=== PATIENT | male | born 1940 | race African-American/Black ===

== ENCOUNTER 2016-11-21 20:52 | Inpatient (IN) | payer MEDICARE, MEDICAID ==
[2016-11-21 21:24] LABS: Oxyhemoglobin 96.7 % (94.0-97.0); Sodium 140 mmol/L (135-148)
[2016-11-21 21:25] LABS: Mode NRB
[2016-11-21 21:30] LABS: Mean Platelet Volume 8.8 fL (7.4-10.4); Red Blood Cell (RBC) Count 4.57 mill/uL (4.70-6.10); White Blood Cell (WBC) Count 15.1 thou/uL (4.8-10.8)
--- NOTE | 2016-11-21 21:34 | RAD ---
SINGLE VIEW OF THE CHEST: 11/21/16 COMPARISON: 07/26/16 HISTORY: Altered mental status for eight hours. FINDINGS: Single view of the chest shows a normal sized cardiomediastinal silhouette with atherosclerotic calc ifications in the aorta. There is near complete opacification of the right thorax. This appeared mas s-like on the prior chest x-ray and appears to have increased in size. No pleural effusion is apprec iated. IMPRESSION: Enlarging mass in the right chest. POS: [facility]
[2016-11-21 21:35] LABS: Prothrombin Time 15.4 SEC (12.0-14.7)
[2016-11-21 21:36] LABS: PTT 22.7 SEC (22.9-36.1)
[2016-11-21 21:44] LABS: Lactic Acid - Sepsis 3.2 mmol/L (0.5-2.2)
[2016-11-21 21:48] LABS: #Basophils 0.1 thou/uL (0.0-0.2); #Lymphocytes 2.6 thou/uL (1.20-3.40); #Monocytes 1.1 thou/uL (0.11-0.59); #Neutrophils 11.4 thou/uL (1.40-6.50); %Basophils 0.3 % (0.0-1.0); %Eosinophils 0.3 % (0.0-10.0); %Lymphocytes 17.1 % (21.0-51.0); %Monocytes 7.1 % (0.0-10.0); ALT (SGPT) 31 U/L (8-55); AST (SGOT) 103 U/L (5-34); Alkaline Phosphatase 97 U/L (40-150); Anion Gap 21 mmol/L (10-20); Anisocytosis SLIGHT = 6-15 cells (100X) (0-5/hpf); BUN (Urea Nitrogen) 27 mg/dL (8.4-25.7); Bilirubin, Total 0.7 mg/dL (0.2-1.2); CK (CPK) 700 U/L (30-200); Calc. Creatinine Clearance 0 mL/min (70-130); Calcium 7.3 mg/dL (7.8-10.44); Carbon Dioxide 31 mmol/L (23-31); Chloride 93 mmol/L (98-107); Estimated GFR-MDRD 29; Globulin 3.8 g/dL (2.4-3.5); Hypochromia SLIGHT = 6-15 cells (100X) (0-5/hpf); Lipase 25 U/L (8-78); Magnesium 1.4 mg/dL (1.6-2.6); Microcytosis SLIGHT = 6-15 cells (100X) (0-5/hpf); Protein, Total 6.9 g/dL (5.8-8.1)
[2016-11-21 22:12] LABS: Troponin I 16.102 ng/mL (< 0.028)
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
[2016-11-21] MEDS ORDERED: Enoxaparin Sodium 60 MG/0.6 ML SYRINGE ONE (22:36)
[2016-11-21] MEDS ORDERED: Piperacillin/Tazobactam 3.375 GM in Sodium Chloride 0.9% 100 ML IVPB SCH (22:45)
[2016-11-21] MEDS ORDERED: Magnesium Sulfate 2 GM/100 ML BAG ONE (22:54)
[2016-11-21] MEDS ORDERED: NS 0.9% w/ 40 MEQ KCL 1,000 ML IV SCH (23:00)
--- NOTE | 2016-11-21 23:38 | PDOC.EVN ---
Event Note - Event Note Event Note: [id number] h&p dictated 1. Lung ca 2. ACute respiratory failure 3. Pneumonia 4. Sepsis PLAN: SEE ORDERS
[2016-11-21] MEDS ORDERED: Ondansetron HCl/PF 4 MG/2 ML Vial IVP PRN (23:39)
[2016-11-21] MEDS ORDERED: Sodium Chloride 0.9% 1,000 ML IV SCH (23:45)
[2016-11-21] MEDS ORDERED: Aspirin 325 MG TAB ONE (23:59)
--- NOTE | 2016-11-21 23:59 | RAD ---
SINGLE VIEW CHEST: 11/21/16 COMPARISON: 11/21/16 HISTORY: Central line placement. FINDINGS: Single view of the chest shows a normal sized cardiomediastinal silhouette. There is near complete o pacification of the right thorax. No central venous catheter is seen. there appears to be a small pe ripheral IV overlying the lateral aspect of the right neck. This may be within the external jugular vein. IMPRESSION: 1. No central venous catheter identified. 2. Stable opacification of the right thorax. POS: [facility]
[2016-11-22 00:12] LABS: Bilirubin Small (Negative); Blood, Urine Large (Negative); Glucose, Urine (Dipstick) Negative (Negative); Ketone, Urine Trace mg/dL (Negative); Nitrite Negative (Negative); Protein, Urine (Dipstick) 30 mg/dL (Neg-Trace)
[2016-11-22] MEDS ORDERED: Dextrose 50% Abboject 50 ML SYRINGE SLOW IVP PRN (00:12)
[2016-11-22] MEDS ORDERED: Dextrose 5% in Water 1,000 ML IV PRN (00:12)
[2016-11-22] MEDS ORDERED: Norepinephrine 8 MG/0.9% NS 250 ML ONE (01:50)
[2016-11-22] MEDS: Sodium Chloride 0.9% 1,000 ML IV SCH ×2 (02:00→17:29)
[2016-11-22] MEDS ORDERED: Norepinephrine 8 MG/250 ML BAG IVPB PRN (02:22)
[2016-11-22 03:14] LABS: Bacteria/HPF Rare-Few HPF (None Seen); Hyaline Casts/LPF 7-10 HYALINE CAST LPF (0-3 Hyaline); RBC/HPF GREATER THAN 50-TNTC HPF (0-3); Renal Epithelial 0-3 HPF (0-3); Yeast-All Forms None Seen HPF (None Seen)
[2016-11-22 03:45] LABS: #Lymphocytes 1.2 thou/uL (1.20-3.40); #Monocytes 0.9 thou/uL (0.11-0.59); #Neutrophils 14.8 thou/uL (1.40-6.50); %Basophils 0.1 % (0.0-1.0); %Eosinophils 0.3 % (0.0-10.0); %Monocytes 5.2 % (0.0-10.0); Hematocrit 24.1 % (42.0-52.0); Mean Platelet Volume 8.2 fL (7.4-10.4); Red Blood Cell (RBC) Count 3.53 mill/uL (4.70-6.10); White Blood Cell (WBC) Count 16.9 thou/uL (4.8-10.8)
[2016-11-22 04:22] LABS: Critical Call Chem Troponin I RESULT DECREASING; Troponin I 12.909 ng/mL (< 0.028)
[2016-11-22 04:24] LABS: Anion Gap 18 mmol/L (10-20); BUN (Urea Nitrogen) 26 mg/dL (8.4-25.7); Calc. Creatinine Clearance 0 mL/min (70-130); Calcium 6.2 mg/dL (7.8-10.44); Carbon Dioxide 27 mmol/L (23-31); Chloride 101 mmol/L (98-107); Estimated GFR-MDRD 33
[2016-11-22] MEDS ORDERED: Potassium Chloride 40 MEQ in Premix Bag 1 BAG IVPB SCH (05:00)
[2016-11-22 05:13] VITALS: BMI 33.9
[2016-11-22] MEDS: methylPREDNISolone Sod Succ/PF 125 MG/2 ML VIAL IVP SCH ×3 (05:47→17:34)
[2016-11-22 06:48] LABS: Anion Gap 19 mmol/L (10-20); BUN (Urea Nitrogen) 28 mg/dL (8.4-25.7); Calc. Creatinine Clearance 23 mL/min (70-130); Calcium 6.3 mg/dL (7.8-10.44); Carbon Dioxide 26 mmol/L (23-31); Chloride 101 mmol/L (98-107); Estimated GFR-MDRD 36
[2016-11-22 06:59] LABS: Critical Call Chem Troponin I RESULT DECREASING; Troponin I 10.668 ng/mL (< 0.028)
--- NOTE | 2016-11-22 08:45 | HP ---
DATE OF ADMISSION: 11/21/2016 CHIEF COMPLAINT: Altered mental status. HISTORY OF PRESENT ILLNESS: The patient is a 76-year-old male with past medical history of peripheral vascular disease, lung CA, currently not on any treatment, seizures, rheumatoid arthritis and CVA, now came to the hospital due to altered mental status. History obtained from the patient's family as the patient is currently lethargic and on BiPAP. According to the family members, the patient was recently discharged from the hospital on 11/08/2016 with the diagnosis of chest pain and also the patient had left AKA due to left lower extremity pain and ulceration. During the hospital stay, the patient was taken home instead of the prison facility or rehab per family request. According to the family, the patient was awake and oriented until yesterday and today the patient started getting confused and lethargic. The patient slept whole day. The patient did not eat or drink the whole day today, so the patient was brought to the ER. Upon ER arrival, the patient was lethargic, so the patient was placed on the BiPAP. PAST MEDICAL HISTORY: As per HPI. PAST SURGICAL HISTORY: Bilateral BKA. SOCIAL HISTORY: Denies smoking, denies alcohol, denies any drugs. MEDICATIONS: Reviewed. ALLERGIES: LATEX and NATURAL RUBBER. REVIEW OF SYSTEMS: None available from the patient as the patient is currently lethargic. PHYSICAL EXAMINATION: VITAL SIGNS: At the time of H and P performed, blood pressure is 86/40, afebrile, respiratory rate 18, pulse ox 97% on BiPAP. GENERAL: This patient appears lethargic, but arousable. HEENT: Face: Positive for BiPAP. Anterior nares patent. NECK: Positive for EJ. No JVD. CARDIOVASCULAR: S1, S2 present. Regular rate and rhythm. No murmurs, no rubs , no gallops. RESPIRATORY SYSTEM: Right side, diminished breath sounds present. Positive for rhonchi. Positive for wheezing. GASTROINTESTINAL: Abdomen is soft, nontender, no guarding, no organomegaly, no masses felt. GENITOURINARY: Positive for Garcia. MUSCULOSKELETAL: Bilateral AKA present. CRANIAL NERVE SYSTEM: Lethargic, not following much commands. PSYCHIATRIC: Mood is lethargic at this time. LABORATORY DATA: At the time of H\T\P performed, white count 15.1, hemoglobin 9.2, platelet count 783. PT 15.4, INR 1.2. ABG showed pH of 7.49, pCO2 of 42.7 , bicarbonate is 31.6. BMP showed sodium 142, potassium 2.9, chloride 93, CO2 of 31, BUN 27, creatinine 2.62. Troponin 16.102, CK-MB 41.2. BNP 193, lipase 25. ASSESSMENT AND PLAN: The patient is a 76-year-old male. 1. [id number] elevation myocardial infarction. ED physician did speak to the practice specialist already, practice specialist recommended medical management only due to patient prognosis. The patient was received Lovenox. We will consult Cardiology to evaluate the patient. 2. Acute respiratory failure plus history of lung CA, plus possible pneumonia. Plan to start the patient on breathing treatments and IV steroids. Continue BiPAP. We will monitor respiratory status closely. Plan to consult Pulmonary to evaluate the patient. 3. Altered mental status. Plan to do CT head. CT head, no acute disease seen , we will monitor the patient closely. 4. History of seizures. Continue home medications. 5. Sepsis secondary to possible pneumonia. Plan to send urine for culture and sensitivity. Plan to do blood cultures. Plan to start empiric antibiotics. 6. Hypotension. Monitor blood pressures. Continue IV fluids. Might need pressors. We will try to keep map greater than 60. 7. Acute kidney injury, baseline creatinine around 0.8. Acute kidney injury might be secondary to hypotension, will start IV fluids, repeat BMP in a.m. Avoid NSAID and nephrotoxic agent. The case was discussed in detail with the patient. The patient is a FULL CODE according to the family members. The family understood the patient's poor prognosis. SOFÍA
[2016-11-22] MEDS ORDERED: Gabapentin 300 MG CAP PO SCH (09:00)
[2016-11-22] MEDS ORDERED: levETIRAcetam 500 MG TAB PO SCH (09:00)
[2016-11-22] MEDS ORDERED: azaTHIOprine 50 MG TAB PO SCH (09:00)
[2016-11-22] MEDS ORDERED: Cefepime 2 GM in Sodium Chloride 0.9% 100 ML IVPB SCH (09:00)
[2016-11-22] MEDS ORDERED: Heparin 5,000 UNITS/ML VIAL SC SCH (09:00)
--- NOTE | 2016-11-22 09:01 | PDOC.PN ---
- Subjective Encounter Start Date: 11/22/16 Encounter Start Time: 08:59 Subjective: No overnight issues -: No agitation -: No n/v - Objective MAR Reviewed: Yes Vital Signs & Weight: Vital Signs (12 hours) Temp Pulse Resp BP Pulse Ox 11/22/16 07:11 61 14 100 11/22/16 07:09 55 L 13 100 11/22/16 04:00 98.3 F 11/22/16 03:21 62 12 11/22/16 03:20 62 12 100 11/22/16 01:00 99.5 F 62 12 84/54 L 100 Weight Weight 120 lb 9.486 oz Most Recent Monitor Data Heart Rate from ECG 60 NIBP 88/49 Respiration from ECG 20 SpO2 97 I&O: 11/21/16 11/22/16 11/23/16 06:59 06:59 06:59 Intake Total 770 0 Output Total 53 50 Balance 717 -50 Result Diagrams: 11/22/16 02:15 11/22/16 05:30 Phys Exam - Physical Examination Constitutional: NAD HEENT: moist MMs, sclera anicteric Neck: no nodes, no JVD Respiratory: no wheezing, no rales Cardiovascular: no significant murmur, no rub Gastrointestinal: soft, non-tender, positive bowel sounds Lymphatic: no nodes Psychiatric: normal affect Skin: no rash, normal turgor, cap refill <2 seconds Dx/Plan (1) Lung cancer Code(s): C34.90 - MALIGNANT NEOPLASM OF UNSP PART OF UNSP BRONCHUS OR LUNG Status: Acute (2) Acute respiratory failure Code(s): J96.00 - ACUTE RESPIRATORY FAILURE, UNSP W HYPOXIA OR HYPERCAPNIA Status: Acute (3) Pneumonia Code(s): J18.9 - PNEUMONIA, UNSPECIFIED ORGANISM Status: Acute (4) Sepsis Code(s): A41.9 - SEPSIS, UNSPECIFIED ORGANISM Status: Acute Qualifiers: (5) NSTEMI (non-ST elevated myocardial infarction) Code(s): I21.4 - NON-ST ELEVATION (NSTEMI) MYOCARDIAL INFARCTION Status: Acute (6) AD (acute kidney injury) Code(s): N17.9 - ACUTE KIDNEY FAILURE, UNSPECIFIED Status: Acute - Plan * Acute Respiratory Failure with PNA (also with h/o lung cancer): appreciate pulm input * NSTEMI: appreciate cardiology input * AD: will consult nephrology, avoid nephrotoxic agents, check renal labs in AM * AMS likely 2/2 above issues: CT brain: no acute issues
[2016-11-22] MEDS: Famotidine/PF 20 mg/2ml Vial SLOW IVP SCH (09:10)
[2016-11-22] MEDS: Vancomycin HCl 1.5 GM in Sodium Chloride 0.9% 250 ML 300 ML IVPB SCH (10:22)
--- NOTE | 2016-11-22 11:47 | CON ---
DATE OF CONSULTATION: 11/22/2016 HISTORY: Mr. Robe Green is 76-year-old black male, who was admitted with altered mental status. He has presumed right lung cancer, although he has never had a biopsy. He also has significant peripheral vascular disease with bilateral [id number] amputations and a right hemispheric stroke with left hemiparesis. His O2 saturation upon arrival was in the 50s. He has been found to have positive cardiac enzymes and EKG changes, and last night, I was called regarding taking him to the industrial laborer; however, with his multiple medical problems, I do not feel that is appropriate. PAST MEDICAL HISTORY: Probable lung cancer, peripheral vascular disease, rheumatoid arthritis, history of cerebrovascular accident, and seizure disorder. OPERATIONS: Include bilateral AKA, left hip surgery. MEDICATIONS: Trazodone 50 at bedtime, prednisone 10 mg q.a.m., Keppra 500 mg b.i.d., azathioprine 50 daily, Bactrim 1 daily, omeprazole 20 daily, [place], Neurontin 300 mg b.i.d., Lasix 40 daily, Folvite 40 daily, iron sulfate 325 b.i.d., baclofen 10 mg daily, albuterol nebs q.6 hours p.r.n., and vitamin B12. ALLERGIES: LATEX and NATURAL RUBBER. SOCIAL HISTORY: Unavailable. FAMILY HISTORY: Unavailable. REVIEW OF SYSTEMS: Cannot be obtained from the patient. PHYSICAL EXAMINATION: VITAL SIGNS: Blood pressure 80/49, pulse of 61, sinus rhythm on the monitor. HEENT: PERRL. NECK: Supple. CHEST: Reveals bilateral rhonchi, greater on the right. CARDIOVASCULAR: S1 and S2 are normal, without any S3, S4, or murmurs. ABDOMEN: Normal bowel sounds, without tenderness. EXTREMITIES: Reveal bilateral AKA without edema. NEUROLOGIC: The patient has left hemiparesis with contractures. He will open his eyes to name. IMAGING AND LABORATORY DATA: EKG reveals junctional rhythm at 75 per minute with anterolateral ST segment depression. Hemoglobin is down to 6.8, hematocrit 24.1, white count 16,900. INR 1.2. PH 7.49, pCO2 of 42.7, pO2 of 194.7. Sodium 143, potassium 2.6, chloride 101, carbon dioxide 26, BUN 28, creatinine 2.17. Troponin I 16.102, CK-MB 41.2. Urine, too numerous to count RBCs, 11-20 WBCs, rare bacteria. IMPRESSION: 1. Mental status changes. 2. Non-ST segment elevation myocardial infarction. His peak troponin is at admission and so this probably occurred several days ago. 3. Respiratory failure with hypoxemia. 4. Probable lung cancer, although this has never been biopsied. It was felt that he would not be a candidate for surgery or chemotherapy. 5. Peripheral vascular disease, status post bilateral above-knee amputations. 6. History of right hemispheric cerebrovascular accident. 7. Chronic kidney disease. 8. Seizure disorder. 9. Drop in hemoglobin from 9.2 on admission to 6.8 this morning. PLAN: With drop in hemoglobin, I would discontinue the heparin. Mr. Green's prognosis is extremely poor given his multiple medical problems. With lung cancer and renal insufficiency, he would be a very poor candidate for any type of cardiac intervention, and I feel that he should just be treated medically. He will be followed by his usual online program coordinator, Dr. Haresh Ware. [facility]ITAL[facility]ariam
--- NOTE | 2016-11-22 12:29 | CON ---
DATE OF CONSULTATION: 11/22/2016 Thirty five minutes of critical care time. CONSULTING PHYSICIAN: Dr. Villalobos from the [facility]. REASON FOR CONSULTATION: Acute respiratory failure. HISTORY OF THE PRESENT ILLNESS: The patient is a 76-year-old male who I have seen in recent hospita lizations and in the office on a couple of occasions. He has a profound right-sided lung mass, whic h I believe is probably cancer. I have told him that there is not much that can be done for that an d he and his family have been agreeable not to treat it. He came in yesterday with increasing hoang rgy and weakness. He was found to be hypoxic, off O2. He was placed on BiPAP. A central line was placed for hypotension and he has been placed in the CCU. PAST MEDICAL HISTORY: 1. Large lung mass 2. Peripheral vascular disease, requiring bilateral AKAs. 3. Rheumatoid arthritis. 4. Cerebrovascular accident. 5. Seizures. 6. Congestive heart failure. 7. Left hip fracture. PAST SURGICAL HISTORY: Bilateral AKAs. FAMILY MEDICAL HISTORY: Remarkable for coronary artery disease. SOCIAL HISTORY: Patient smoked 1 pack per day between ages 18 and 62, does not consume alcohol, saldivar s not use recreational drugs. MEDICATIONS PRIOR TO ADMISSION: Trazodone, prednisone, Keppra, azathioprine, Bactrim, omeprazole, N orco, Neurontin, Lasix, folate, iron sulfate, vitamin B12, baclofen, and albuterol. REVIEW OF SYSTEMS: Not obtainable due to patient's altered mental status. PHYSICAL EXAMINATION: VITAL SIGNS: Pulse 64, blood pressure 118/50, O2 sat 100%, respiratory rate 18, temperature 98.3. GENERAL: He is a chronically ill appearing male who is on BiPAP. He has contracted left arm. HEENT: Pupils react. Sclerae are anicteric. Oropharynx dry. NECK: No JVD. LUNGS: Almost absent breath sounds on the right, fairly clear on the left. CARDIOVASCULAR: S1 and S2 regular, without murmur. ABDOMEN: Soft, nontender. EXTREMITIES: Bilateral above the knee amputations with continued fresh stephanie on the left stump. LABORATORY DATA: White blood cell count 16.9, hemoglobin 6.8, hematocrit 24.1, platelet count 702. Sodium 143, potassium 2.6, chloride 101, CO2 26, BUN 28, creatinine 2.1, glucose 150. Troponin 10. 6. Urinalysis showed white blood cells and red blood cells. ASSESSMENT: 1. Non-Q-wave myocardial infarction. 2. Lung cancer with almost entire opacification of the right hemothorax by the tumor mass. 3. Urinary tract infection. PLAN: 1. I will consult Palliative Care as I think this is a hopeless situation. 2. We will speak with the family when they become available.
[2016-11-22] MEDS: HumaLOG 300 UNITS/3 ML VIAL SC PRN ×4 (12:54→22:12)
[2016-11-22] MEDS: Acetaminophen 325 MG TAB PO PRN (17:24)
[2016-11-23] MEDS: methylPREDNISolone Sod Succ/PF 125 MG/2 ML VIAL IVP SCH ×4 (00:54→18:26)
[2016-11-23 05:04] LABS: #Lymphocytes 0.4 thou/uL (1.20-3.40); #Monocytes 0.2 thou/uL (0.11-0.59); #Neutrophils 13.2 thou/uL (1.40-6.50); %Eosinophils 0.1 % (0.0-10.0); %Lymphocytes 3.1 % (21.0-51.0); %Monocytes 1.4 % (0.0-10.0); Hematocrit 22.6 % (42.0-52.0); Mean Platelet Volume 8.4 fL (7.4-10.4); Red Blood Cell (RBC) Count 3.31 mill/uL (4.70-6.10); White Blood Cell (WBC) Count 13.9 thou/uL (4.8-10.8)
[2016-11-23] MEDS: Acetaminophen 325 MG TAB PO PRN (05:04)
[2016-11-23] MEDS: Sodium Chloride 0.9% 1,000 ML IV SCH ×2 (05:05→21:25)
--- NOTE | 2016-11-23 06:36 | CON ---
DATE OF CONSULTATION: 11/22/2016 CONSULTING PHYSICIAN: Dr. Villalobos. REASON FOR CONSULTATION: Acute kidney injury. REASON FOR ADMISSION: Altered mentation. HISTORY OF PRESENT ILLNESS: This is a 76-year-old white male with a history of peripheral vascular disease, lung CA, rheumatoid arthritis, and CVA, came to the hospital with altered mentation, was found to have acute kidney injury. Creatinine was found to be 2.6 and it is better to 2.1. Her baseline is 0.8 from 11/08/2016. The patient is not able to give a good history and most of the history was reviewed from the records, and the patient was awake and oriented until yesterday and started getting confused, lethargic, and sleepy. PAST MEDICAL HISTORY: Positive for lung CA, peripheral vascular disease, seizure, rheumatoid arthritis, CVA. PAST SURGICAL HISTORY: Bilateral BKA. HOME MEDICATIONS: Include Folvite, baclofen, prednisone, Keppra, cefepime, Bactrim, Neurontin, Lasix, trazodone. ALLERGIES: LATEX and NATURAL RUBBER. SOCIAL HISTORY: No smoking, alcohol, or illicit drug abuse. FAMILY HISTORY: No history of any kidney disease. REVIEW OF SYSTEMS: Could not be obtained due to lethargy and not able to participate. PHYSICAL EXAMINATION: GENERAL: Elderly male, slightly confused. VITAL SIGNS: Temperature 98.2, pulse 68, respiratory rate 18, blood pressure 100/63. HEENT: Atraumatic, normocephalic. Oral mucosa is moist. NECK: Supple. CARDIOVASCULAR: S1, S2 heard. Rate and rhythm regular. RESPIRATORY: Clear. GASTROINTESTINAL: Abdomen is soft. MUSCULOSKELETAL: 1+ edema. DERMATOLOGIC: No skin rash. NEUROLOGICAL: Not cooperating and not waking up. LABORATORY DATA: WBC 16.9, hemoglobin is 6.8. Potassium is 2.6, BUN is 28, creatinine is 2.1. ASSESSMENT AND PLAN: 1. Acute kidney injury. Continue supportive care. Continue hydration. Creatinine is getting better. Creatinine on admission was 2.6, now is 2.1. 2. Hypokalemia. Replace and monitor. Monitor magnesium level too. Magnesium level was low. Replace magnesium and potassium. 3. Hypocalcemia, replace and monitor. Check vitamin D level. 4. Anemia, rule out any bleed. 5. Leukocytosis. 6. Altered mentation. 7. Elevated troponin. Overall, long-term prognosis is poor. Avoid nephrotoxins. We will continue to follow. [facility]
[2016-11-23] MEDS: HumaLOG 300 UNITS/3 ML VIAL SC PRN ×2 (06:47→12:35)
--- NOTE | 2016-11-23 08:24 | PRG ---
DATE OF SERVICE: 11/23/2016 Mr. Green and his family met with the Palliative Care team yesterday. He decided to go forward wi th a DNR status and pursue hospice type care. We are awaiting that to be arranged. PHYSICAL EXAMINATION: VITAL SIGNS: Temperature is 97.5, pulse 66, blood pressure 93/55. 24 hour intake 3282, output 320. HEENT: Bitemporal wasting is present. NECK: No JVD. LUNGS: Coarse breath sounds. CARDIOVASCULAR: S1, S2 regular. ABDOMEN: Soft. EXTREMITIES: Bilateral lower extremity above the knee amputations. LABORATORY DATA: White blood cell count 13.9, hematocrit 22.6, platelet count 655. No chemistry wa s done today. ASSESSMENT: 1. The patient has advanced lung cancer and is not a candidate for therapy 2. Myocardial infarction. 3. Acute respiratory failure. 4. Urinary tract infection. PLAN: He will be transferred to the Oncology unit while hospice arrangements are being made. My as sumption is that his antibiotics can probably be converted to oral before he goes home. I met with the family yesterday. All questions were answered.
--- NOTE | 2016-11-23 09:03 | PDOC.PN ---
- Subjective Encounter Start Date: 11/23/16 Encounter Start Time: 09:01 Subjective: No overnight issues -: No agitation -: Daughter at bedside - Objective Resuscitation Status: Resuscitation Status DNR:Do Not Resuscitate MAR Reviewed: Yes Vital Signs & Weight: Vital Signs (12 hours) Temp Pulse Resp BP Pulse Ox 11/23/16 07:53 65 23 H 100 11/23/16 07:48 97.5 F L 66 21 H 100 11/23/16 07:45 97.5 F L 11/23/16 06:00 70 20 108/52 L 99 11/23/16 05:00 98.6 F 71 21 H 99/50 L 98 11/23/16 04:00 66 18 89/49 L 100 11/23/16 03:26 20 99 11/23/16 03:00 63 17 116/59 L 99 11/23/16 02:00 64 21 H 106/52 L 100 11/23/16 01:00 66 18 101/54 L 99 11/23/16 00:00 98.9 F 64 17 85/43 L 100 11/22/16 23:17 22 H 98 11/22/16 23:00 69 21 H 105/65 99 11/22/16 22:00 70 24 H 121/64 100 Weight Weight 120 lb 9.486 oz Most Recent Monitor Data Heart Rate from ECG 68 NIBP 116/65 Respiration from ECG 17 SpO2 99 I&O: 11/22/16 11/23/16 11/24/16 06:59 06:59 06:59 Intake Total 770 3282.7 200 Output Total 53 320 30 Balance 717 2962.7 170 Result Diagrams: 11/23/16 04:30 11/22/16 05:30 Additional Labs: Accuchecks 11/23/16 11/22/16 11/22/16 06:43 22:04 17:44 POC Glucose 186 H 226 H 243 H 11/22/16 11/22/16 12:41 06:20 POC Glucose 235 H 159 H Phys Exam - Physical Examination Constitutional: NAD HEENT: moist MMs, sclera anicteric Neck: no nodes, no JVD Respiratory: no wheezing, no rales, no rhonchi Cardiovascular: no significant murmur, no rub Gastrointestinal: soft, non-tender, positive bowel sounds Psychiatric: normal affect Skin: no rash, normal turgor Dx/Plan (1) Lung cancer Code(s): C34.90 - MALIGNANT NEOPLASM OF UNSP PART OF UNSP BRONCHUS OR LUNG Status: Acute (2) Acute respiratory failure Code(s): J96.00 - ACUTE RESPIRATORY FAILURE, UNSP W HYPOXIA OR HYPERCAPNIA Status: Acute (3) Pneumonia Code(s): J18.9 - PNEUMONIA, UNSPECIFIED ORGANISM Status: Acute (4) Sepsis Code(s): A41.9 - SEPSIS, UNSPECIFIED ORGANISM Status: Acute Qualifiers: (5) NSTEMI (non-ST elevated myocardial infarction) Code(s): I21.4 - NON-ST ELEVATION (NSTEMI) MYOCARDIAL INFARCTION Status: Acute (6) AD (acute kidney injury) Code(s): N17.9 - ACUTE KIDNEY FAILURE, UNSPECIFIED Status: Acute - Plan * Acute Respiratory Failure with PNA (also with h/o lung cancer): appreciate pulm input * NSTEMI: appreciate cardiology input * AD: will consult nephrology, avoid nephrotoxic agents, check renal labs in AM * AMS likely 2/2 above issues: CT brain: no acute issues * Anemia: no transfusion - family prefers hospice care route * Goals of care: appreciate palliative care, pt now DNR - arrangments being made for hospice care
[2016-11-23] MEDS: Cefepime 2 GM in Sodium Chloride 0.9% 100 ML IVPB SCH (09:09)
[2016-11-23] MEDS: Famotidine/PF 20 mg/2ml Vial SLOW IVP SCH (09:09)
--- NOTE | 2016-11-23 09:13 | PDOC.CTH ---
Cardiology Progress Note - Subjective Patient and family have decided on hospice care going forward. In light of his multiple medical comorbidities and advanced stage lung cancer, I agree with this decision. He does not complain of CP. Appears comfortable at this time. - Objective Vital Signs Temp Pulse Resp BP Pulse Ox 11/23/16 07:53 65 23 H 100 11/23/16 07:48 97.5 F L 66 21 H 100 11/23/16 07:45 97.5 F L 11/23/16 06:00 70 20 108/52 L 99 11/23/16 05:00 98.6 F 71 21 H 99/50 L 98 11/23/16 04:00 66 18 89/49 L 100 11/23/16 03:26 20 99 11/23/16 03:00 63 17 116/59 L 99 11/23/16 02:00 64 21 H 106/52 L 100 11/23/16 01:00 66 18 101/54 L 99 11/23/16 00:00 98.9 F 64 17 85/43 L 100 11/22/16 23:17 22 H 98 11/22/16 23:00 69 21 H 105/65 99 11/22/16 22:00 70 24 H 121/64 100 Weight 120 lb 9.486 oz 11/22/16 11/23/16 11/24/16 06:59 06:59 06:59 Intake Total 770 3282.7 200 Output Total 53 320 30 Balance 717 2962.7 170 - Physical Examination General/Neuro: NAD Neck: carotid US brisk, no JVD present Lungs: unlabored respirations Heart: PMI normal, RRR Abdomen: no HSM, NT/ND, soft Extremities: other: (2+ fem pulses, bilat amputations) Other PE findings: Neuro: upper extremity contractures unchanged - Telemetry Telemetry Rhythm: sinus rhythm - Labs Result Diagrams: 11/23/16 04:30 11/22/16 05:30 Troponin/CKMB CK-MB (CK-2) 41.2 ng/mL (0-6.6) H* 11/21/16 21:13 Troponin I 10.668 ng/mL (< 0.028) H* 11/22/16 05:30 - Assessment/Plan 1. NSTEMI: not interventional candidate. Medical management recommended. Continue to hold BB, ACEI, nitrates due to need for pressors and renal failure. Statin therapy will not be pursued due to desire for hospice therapy. Will sign off case for now. Please call with CV questions going forward. 2. advanced stage lung cancer: agree with hospice care decision. 3. CVA with diffuse neuro deficits: chronic 4. acute/chronic renal failure: nephrology following. Not dialysis candidate
[2016-11-23] MEDS: Vancomycin HCl 1.5 GM in Sodium Chloride 0.9% 250 ML 300 ML IVPB SCH (10:32)
[2016-11-23 16:39] LABS: Anion Gap 20 mmol/L (10-20); BUN (Urea Nitrogen) 37 mg/dL (8.4-25.7); Calc. Creatinine Clearance 28 mL/min (70-130); Calcium 6.7 mg/dL (7.8-10.44); Carbon Dioxide 17 mmol/L (23-31); Chloride 105 mmol/L (98-107); Estimated GFR-MDRD 46
--- NOTE | 2016-11-23 17:52 | PRG ---
DATE OF SERVICE: 11/23/2016 SUBJECTIVE: Patient was seen and examined at bedside and overnight events noted. Patient denies any shortness of breath or chest pain or palpitation. No history of nausea or vomiting or diarrhea or fever or chills or cramps. OBJECTIVE: GENERAL: This is a thin-built male in no apparent distress. VITAL SIGNS: Temperature 98.5, pulse 75, respiratory rate 18, blood pressure 113/65. HEENT: Atraumatic, normocephalic. Oral mucosa is moist. NECK: Supple. CARDIOVASCULAR: S1 and S2 heard, rate and rhythm regular. RESPIRATORY: Clear to auscultation. GASTROINTESTINAL: Abdomen is soft. MUSCULOSKELETAL: No tenderness, no edema. DERMATOLOGIC: No skin rash. NEUROLOGIC: Alert and awake and oriented X3. No focal neurologic deficits. Moving all the extremities. PSYCHIATRIC: Mood and affect normal. LABORATORY DATA: Potassium is 3.4, BUN is 20, creatinine 1.7 from 2.7. ASSESSMENT AND PLAN: 1. Acute kidney injury. Renal function is getting better with improvement in the urine output, but his overall prognosis is poor. I had discussion with the family. Plan is to move him for comfort measures. 2. Hypokalemia. 3. Hypocalcemia. 4. Anemia. 5. Leukocytosis. 6. Altered mentation. 7. Overall, long-term prognosis is poor. The family understands the prognosis and the plan is to move him to hospice. SOFÍA
[2016-11-24] MEDS ORDERED: Sterile Water 10 ML ONE (00:04)
[2016-11-24] MEDS: methylPREDNISolone Sod Succ/PF 125 MG/2 ML VIAL IVP SCH ×5 (00:09→23:53)
[2016-11-24] MEDS: HumaLOG 300 UNITS/3 ML VIAL SC PRN ×3 (05:25→17:37)
--- NOTE | 2016-11-24 07:27 | PDOC.PN ---
- Subjective Encounter Start Date: 11/24/16 Encounter Start Time: 07:26 Subjective: SOB -: No overnight issues - Objective Resuscitation Status: Resuscitation Status DNR:Do Not Resuscitate MAR Reviewed: Yes Vital Signs & Weight: Vital Signs (12 hours) Temp Pulse Resp BP Pulse Ox 11/24/16 06:25 86 22 H 99 11/24/16 03:54 98.5 F 73 20 135/72 98 11/24/16 02:30 76 16 99 11/23/16 23:56 97.9 F 72 16 129/71 98 11/23/16 22:22 75 16 100 11/23/16 21:10 97.9 F 72 16 100 11/23/16 20:00 98.4 F 76 20 133/67 100 Weight Weight 120 lb 9.486 oz Most Recent Monitor Data Heart Rate from ECG 82 NIBP 134/56 NIBP BP-Mean 106 Respiration from ECG 37 SpO2 92 I&O: 11/23/16 11/24/16 11/25/16 06:59 06:59 06:59 Intake Total 3282.7 700 Output Total 320 223 Balance 2962.7 477 Result Diagrams: 11/23/16 04:30 11/23/16 15:59 Additional Labs: Accuchecks 11/24/16 11/23/16 11/23/16 05:25 20:19 12:06 POC Glucose 193 H 179 H 211 H 11/23/16 06:43 POC Glucose 186 H Phys Exam - Physical Examination Constitutional: NAD HEENT: moist MMs, sclera anicteric Neck: no nodes, no JVD b/l coarse Cardiovascular: no significant murmur, no rub Gastrointestinal: soft, non-tender, positive bowel sounds Skin: no rash, cap refill <2 seconds Dx/Plan (1) Lung cancer Code(s): C34.90 - MALIGNANT NEOPLASM OF UNSP PART OF UNSP BRONCHUS OR LUNG Status: Acute (2) Acute respiratory failure Code(s): J96.00 - ACUTE RESPIRATORY FAILURE, UNSP W HYPOXIA OR HYPERCAPNIA Status: Acute (3) Pneumonia Code(s): J18.9 - PNEUMONIA, UNSPECIFIED ORGANISM Status: Acute (4) Sepsis Code(s): A41.9 - SEPSIS, UNSPECIFIED ORGANISM Status: Acute Qualifiers: (5) NSTEMI (non-ST elevated myocardial infarction) Code(s): I21.4 - NON-ST ELEVATION (NSTEMI) MYOCARDIAL INFARCTION Status: Acute (6) AD (acute kidney injury) Code(s): N17.9 - ACUTE KIDNEY FAILURE, UNSPECIFIED Status: Acute - Plan * Acute Respiratory Failure with PNA (also with h/o lung cancer): appreciate pulm input * NSTEMI: appreciate cardiology input * AD: will consult nephrology, avoid nephrotoxic agents * AMS likely 2/2 above issues: CT brain: no acute issues * Anemia: no transfusion - family prefers hospice care route * Goals of care: appreciate palliative care, pt now DNR - arrangements being made for hospice care with discharge planned for lupe
[2016-11-24] MEDS: Famotidine/PF 20 mg/2ml Vial SLOW IVP SCH (08:49)
[2016-11-24] MEDS: Cefepime 2 GM in Sodium Chloride 0.9% 100 ML IVPB SCH (10:00)
[2016-11-24] MEDS: Vancomycin HCl 1.5 GM in Sodium Chloride 0.9% 250 ML 300 ML IVPB SCH (10:36)
[2016-11-24] MEDS: Sodium Chloride 0.9% 1,000 ML IV SCH ×2 (11:54→16:05)
--- NOTE | 2016-11-24 12:20 | PRG ---
DATE OF SERVICE: 11/24/2016 SUBJECTIVE: Patient was seen and examined at bedside, nonverbal, but asking for water. No apparent distress. OBJECTIVE: GENERAL: This is a well-built male in no apparent distress. VITAL SIGNS: Temperature 95, pulse 103, respiratory rate 18 and blood pressure 141/70. HEENT: Atraumatic and normocephalic. Oral mucosa is moist. NECK: Supple. CARDIOVASCULAR: S1 and S2 heard. Rate and rhythm regular. RESPIRATORY: Clear to auscultation. GASTROINTESTINAL: Abdomen is soft. MUSCULOSKELETAL: No tenderness. No edema. DERMATOLOGIC: No skin rash. NEUROLOGIC: Alert, awake and oriented x3. No focal neurologic deficits. Moving all the extremitie s. PSYCHIATRIC: Mood and affect normal. LABORATORY DATA: Not done today. ASSESSMENT AND PLAN: 1. Acute kidney injury. 2. Hyperkalemia. 3. Hypercalcemia. 4. Altered mentation. 5. Leukocytosis. Overall, prognosis is poor. Family has agreed for comfort measures and plan is t o transfer him to hospice tomorrow. I will sign off. Please call back with any questions.
--- NOTE | 2016-11-24 13:01 | PRG ---
DATE OF SERVICE: 11/24/2016 SUBJECTIVE: Mr. Green continues to have problems with his secretions. He is having episodes of s hortness of breath, which appears to have improved with morphine. PHYSICAL EXAMINATION: VITAL SIGNS: Stable. HEENT: Unremarkable. NECK: No JVD. LUNGS: Coarse breath sounds almost absent on the right. CARDIAC: S1 and S2 regular. ABDOMEN: Soft. EXTREMITIES: Bilateral above the knee amputations. ASSESSMENT: 1. Progressive lung cancer. 2. Non-Q-wave myocardial infarction. PLAN: Hospice care is planned. We are continuing current treatment until hospice has started.
[2016-11-25] MEDS: HumaLOG 300 UNITS/3 ML VIAL SC PRN ×3 (05:52→16:46)
[2016-11-25] MEDS: methylPREDNISolone Sod Succ/PF 125 MG/2 ML VIAL IVP SCH ×3 (05:53→18:12)
[2016-11-25] MEDS: Sodium Chloride 0.9% 1,000 ML IV SCH ×3 (05:55→20:36)
[2016-11-25] MEDS: Cefepime 2 GM in Sodium Chloride 0.9% 100 ML IVPB SCH (08:13)
[2016-11-25] MEDS: Famotidine/PF 20 mg/2ml Vial SLOW IVP SCH (08:14)
[2016-11-25 09:31] LABS: Vancomycin, Trough 32.6 ug/mL
[2016-11-25] MEDS: Vancomycin HCl 1.5 GM in Sodium Chloride 0.9% 250 ML 300 ML IVPB SCH (10:03)
--- NOTE | 2016-11-25 10:35 | PDOC.PN ---
- Subjective Encounter Start Date: 11/25/16 Encounter Start Time: 10:33 Patient seen and examined, at bedside, patient's states that he has had a bit more swelling and that she has also seen him having random jerking movements, no other issues, all questions answered. - Objective Resuscitation Status: Resuscitation Status DNR:Do Not Resuscitate Vital Signs & Weight: Vital Signs (12 hours) Temp Pulse Resp BP Pulse Ox 11/25/16 10:05 113 H 28 H 96 11/25/16 08:00 98.4 F 116 H 28 H 97 11/25/16 07:36 98.4 F 116 H 28 H 129/81 97 11/25/16 02:29 114 H 22 H 99 Weight Weight 120 lb 9.486 oz Most Recent Monitor Data Heart Rate from ECG 82 NIBP 134/56 NIBP BP-Mean 106 Respiration from ECG 37 SpO2 92 I&O: 11/24/16 11/25/16 11/26/16 06:59 06:59 06:59 Intake Total 700 2250 Output Total 223 1650 Balance 477 600 Result Diagrams: 11/23/16 04:30 11/23/16 15:59 Additional Labs: Accuchecks 11/25/16 11/24/16 11/24/16 05:33 20:19 16:39 POC Glucose 203 H 191 H 150 H 11/24/16 11:52 POC Glucose 165 H Phys Exam - Physical Examination Constitutional: NAD sitting in bed HEENT: PERRLA, moist MMs Neck: no nodes, no JVD Respiratory: no wheezing, no rales Cardiovascular: RRR, no significant murmur Gastrointestinal: soft, non-tender, no distention Musculoskeletal: pulses present, edema present (1+) Neurological: moves all 4 limbs +asterixis Deviation from normal: disoriented, not answering questions properly Dx/Plan (1) AD (acute kidney injury) Code(s): N17.9 - ACUTE KIDNEY FAILURE, UNSPECIFIED Status: Acute (2) Acute respiratory failure Code(s): J96.00 - ACUTE RESPIRATORY FAILURE, UNSP W HYPOXIA OR HYPERCAPNIA Status: Acute (3) Aspiration pneumonia Code(s): J69.0 - PNEUMONITIS DUE TO INHALATION OF FOOD AND VOMIT Status: Acute Qualifiers: Aspiration pneumonia type: due to regurgitated food Laterality: right Lung location: middle lobe of lung Qualified Code(s): J69.0 - Pneumonitis due to inhalation of food and vomit (4) Demand ischemia Code(s): I24.8 - OTHER FORMS OF ACUTE ISCHEMIC HEART DISEASE Status: Acute (5) Physical deconditioning Code(s): R53.81 - OTHER MALAISE Status: Chronic - Plan * At this point in time will hold vanc as level was high, repeat trough in 24 hours and continue to hold if levels are above 20 * Patient also has significant uremic symptomatology given Cr levels of 1.7-2 and the fact that he has no lower extremities indicates significant renal disease, patient is also very volume heavy, will give lasix 80mg IV x 1 dose for now * cont insulin for now for sugar control * hospice planned for sunday per family request * pain control, diet as tolerated * abdomen distended will obtain KUB * understands that the patient is very high risk for aspiration * case and plan d/w patient's at length, she understands and agrees with this plan
[2016-11-25] MEDS ORDERED: Furosemide 100 MG/10 ML VIAL SLOW IVP SCH (10:45)
--- NOTE | 2016-11-25 16:22 | RAD ---
AP VIEW ABDOMEN: 11/25/16 HISTORY: Vomiting, abdominal distention. AP view abdomen is obtained. There is a moderate amount of gas seen in the colon. No evidence of bowel obstruction or ileus seen. No dilated loops of bowel seen. There is a right vascular catheter in place over the right femoral region. A small right sided pleural effusion is seen. Radiograph is suboptimal due to patient motion . IMPRESSION: Gas is seen in the small bowel and colon. No definite evidence of obstruction is. POS: H
--- NOTE | 2016-11-25 20:04 | PRG ---
DATE OF SERVICE: 11/25/2016 SUBJECTIVE: Patient was seen and examined at bedside and overnight events noted. Patient denies an y shortness of breath or chest pain or palpitation. No history of nausea or vomiting or diarrhea or fever or chills or cramps. The patient's was at the bedside. OBJECTIVE: GENERAL: This is an elderly male in mild distress. VITAL SIGNS: Temperature 99.5, pulse 106, respiratory rate 28, blood pressure 129/81. HEENT: Atraumatic, normocephalic. Oral mucosa is moist. NECK: Supple. CARDIOVASCULAR: S1 and S2 heard, rate and rhythm regular. RESPIRATORY: Clear to auscultation. GASTROINTESTINAL: Abdomen is soft. MUSCULOSKELETAL: No tenderness, no edema. DERMATOLOGIC: No skin rash. NEUROLOGIC: Alert and awake and oriented X3. No focal neurologic deficits. Moving all the extremi ties. PSYCHIATRIC: Mood and affect normal. LABORATORY DATA: No labs today. ASSESSMENT AND PLAN: 1. Acute kidney injury. 2. Hyperkalemia. 3. Hypocalcemia. 4. Altered mentation. 5. Leukocytosis. 6. Advanced lung cancer with poor prognosis. 7. The patient and family were given options for hospice. We will follow.
[2016-11-26] MEDS: methylPREDNISolone Sod Succ/PF 125 MG/2 ML VIAL IVP SCH ×5 (00:35→23:52)
[2016-11-26] MEDS: Cefepime 2 GM in Sodium Chloride 0.9% 100 ML IVPB SCH (08:04)
[2016-11-26] MEDS: Famotidine/PF 20 mg/2ml Vial SLOW IVP SCH (08:04)
[2016-11-26] MEDS ORDERED: Vancomycin HCl 1.5 GM in Sodium Chloride 0.9% 250 ML 300 ML IVPB SCH (09:00)
[2016-11-26 09:07] LABS: Vancomycin, Trough 17.7 ug/mL
--- NOTE | 2016-11-26 11:17 | PDOC.PN ---
- Subjective Encounter Start Date: 11/26/16 Encounter Start Time: 11:16 Patient seen and examined, no family at bedside, remains confused. - Objective Resuscitation Status: Resuscitation Status DNR:Do Not Resuscitate Vital Signs & Weight: Vital Signs (12 hours) Temp Pulse Resp BP Pulse Ox 11/26/16 10:59 108 H 24 H 100 11/26/16 08:01 98 F 108 H 18 144/83 H 99 11/26/16 08:00 98 F 108 H 18 99 11/26/16 07:01 108 H 24 H 100 11/26/16 03:56 96 11/26/16 01:10 96 Weight Weight 120 lb 9.486 oz Most Recent Monitor Data Heart Rate from ECG 82 NIBP 134/56 NIBP BP-Mean 106 Respiration from ECG 37 SpO2 92 I&O: 11/25/16 11/26/16 11/27/16 06:59 06:59 06:59 Intake Total 2250 3380 Output Total 1650 4250 Balance 600 -870 Result Diagrams: 11/23/16 04:30 11/23/16 15:59 Additional Labs: Accuchecks 11/26/16 11/25/16 11/25/16 05:34 19:57 16:39 POC Glucose 206 H 181 H 261 H 11/25/16 11:14 POC Glucose 204 H Phys Exam - Physical Examination Constitutional: NAD sitting in bed, sleeping HEENT: PERRLA, moist MMs Neck: no nodes, no JVD coarse breathing B/L lobes, symmetric expansion Cardiovascular: RRR, no significant murmur Gastrointestinal: soft, non-tender, no distention Musculoskeletal: pulses present, edema present (1+) B/L LE AKA Skin: no rash, normal turgor Dx/Plan (1) AD (acute kidney injury) Code(s): N17.9 - ACUTE KIDNEY FAILURE, UNSPECIFIED Status: Acute (2) Acute respiratory failure Code(s): J96.00 - ACUTE RESPIRATORY FAILURE, UNSP W HYPOXIA OR HYPERCAPNIA Status: Acute (3) Aspiration pneumonia Code(s): J69.0 - PNEUMONITIS DUE TO INHALATION OF FOOD AND VOMIT Status: Acute Qualifiers: Aspiration pneumonia type: due to regurgitated food Laterality: right Lung location: middle lobe of lung Qualified Code(s): J69.0 - Pneumonitis due to inhalation of food and vomit (4) Demand ischemia Code(s): I24.8 - OTHER FORMS OF ACUTE ISCHEMIC HEART DISEASE Status: Acute (5) Physical deconditioning Code(s): R53.81 - OTHER MALAISE Status: Chronic - Plan * Vanc level at 17, will continue to hold for now * comfort care * hospice plans for AM per family request * No family at bedside
[2016-11-26] MEDS: HumaLOG 300 UNITS/3 ML VIAL SC PRN ×3 (12:36→20:46)
[2016-11-26] MEDS: Sodium Chloride 0.9% 1,000 ML IV SCH (12:43)
--- NOTE | 2016-11-26 15:44 | PRG ---
DATE OF SERVICE: 11/26/2016 SUBJECTIVE: Patient was seen and examined at bedside and overnight events noted. Patient denies an y shortness of breath or chest pain or palpitation. No history of nausea or vomiting or diarrhea or fever or chills or cramps. OBJECTIVE: GENERAL: This is an -Cypriot male in mild distress. VITAL SIGNS: Temperature 98.0, pulse 108, respiratory rate 18, blood pressure 144/83. HEENT: Atraumatic, normocephalic. Oral mucosa is moist. NECK: Supple. CARDIOVASCULAR: S1 and S2 heard, rate and rhythm regular. RESPIRATORY: Clear to auscultation. GASTROINTESTINAL: Abdomen is soft. MUSCULOSKELETAL: No tenderness, no edema. DERMATOLOGIC: No skin rash. NEUROLOGIC: Alert and awake and oriented X3. No focal neurologic deficits. Moving all the extremi ties. PSYCHIATRIC: Mood and affect normal. LABORATORY DATA: Not done today. ASSESSMENT AND PLAN: 1. Acute kidney injury. Monitor labs. 2. Hyperkalemia. 3. Hypocalcemia. 4. Altered mentation, slightly better. 5. Leukocytosis. 6. Advanced lung cancer. 7. Overall long-term prognosis is poor. Family deciding on hospice care, possibly tomorrow. We wi ll follow.
[2016-11-27] MEDS: Sodium Chloride 0.9% 1,000 ML IV SCH (02:18)
[2016-11-27] MEDS: methylPREDNISolone Sod Succ/PF 125 MG/2 ML VIAL IVP SCH ×2 (05:58→11:52)
[2016-11-27 08:01] VITALS: BP 125/74; TEMP 98.5
[2016-11-27] MEDS: Famotidine/PF 20 mg/2ml Vial SLOW IVP SCH (08:02)
--- NOTE | 2016-11-27 08:55 | PRG ---
DATE OF SERVICE: 11/27/2016 He is about the same. Hospice care is being planned at this time. PHYSICAL EXAMINATION: VITAL SIGNS: Temperature is 98.5, pulse 111, respirations 20, O2 sats 94%, blood pressure 120/74. HEENT: Unremarkable. NECK: No JVD. CHEST: Clear except on the right where he has no breath sounds. CARDIAC: S1 and S2 regular. ABDOMEN: Soft. EXTREMITIES: No edema. ASSESSMENT: End-stage lung cancer. PLAN: Hospice care planned. I am available as needed.
[2016-11-27] MEDS: Cefepime 2 GM in Sodium Chloride 0.9% 100 ML IVPB SCH (08:57)
[2016-11-27] MEDS ORDERED: Nystatin 500,000 UNITS/5 ML UDCUP SSW SCH (09:00)
--- NOTE | 2016-11-27 11:04 | DIS ---
DATE OF ADMISSION: 11/21/2016 DATE OF DISCHARGE: 11/27/2016 DISCHARGE DIAGNOSES: 1. End-stage lung cancer. 2. Acute kidney injury. 3. Acute respiratory failure. 4. Aspiration pneumonia. 5. 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 6. Demand ischemia. 7. Physical deconditioning. 8. Severe sepsis with evidence of end organ disease. CONSULTATIONS: 1. Nephrology, Dr. Machado. 2. Cardiology, Dr. Omar Rowland. 3. Pulmonary, Dr. Chauncey Grullon. PROCEDURES: None. HISTORY AND PHYSICAL: Mr. Green is a 76-year-old -[place] gentleman with history of strok e, end-stage lung cancer who was brought in for altered mental status. The patient was hypoxemic an d hypercapnic and required BiPAP on admission. The patient recently in the hospital for chest pain and left lower extremity pain and ulceration, status post left AKA. He was discharged to [facility] facility at that time and was brought back to the ER and he was being found unresponsive. Tro ponin was elevated. He was diagnosed with a non-ST elevation MT initially, later modified to demand ischemia. He was found to have acute respiratory failure, aspiration pneumonia and sepsis with acu te kidney injury. He was admitted to the oncology floor to the hospitalist service. Cardiology, Pu lmonary, Nephrology were all consulted. By 11/22, patient was seen by Cardiology and by Pulmonary. Cardiology felt this was demand ischemia and no further workup was recommended, Nephrology consultation was pending. CT scan of the brain wa s unremarkable for acute intracranial abnormalities. On 11/23, the patient was improving from a respiratory standpoint. Renal labs were stable. The te ent's family was considering hospice care. Palliative care was consulted and evaluated the patient. The patient was made DNR and hospice arrangements were being made. The patient slowly improved from 11/24 to 11/27. Patient's family decided on hospice and hospice was consulted. Arrangement made for hospice care at home and once arranged, the patient was stable for discharge. DISCHARGE MEDICATIONS: 1. Tylenol p.r.n. 2. Albuterol sulfate 1.25 mg per 3 mL nebulized q.6 hours p.r.n. wheezing. 3. Baclofen 10 mg daily. 4. Iron sulfate daily. 5. Folic acid 1 mg daily. 6. Lasix 40 mg daily. 7. Neurontin 300 mg p.o. b.i.d. 8. Hydrocodone to continue per home dosing at 5/325 one p.o. q.6 hours p.r.n. 9. Levaquin 500 mg daily for 5 more days. 10. Nystatin swish and swallow 5 mL q.i.d. swish and swallow. 11. Omeprazole 20 mg daily. 12. Azathioprine 50 mg daily. 13. Keppra 500 mg b.i.d. 14. Prednisone 10 mg p.o. q.a.m. 15. Prednisone 40 mg daily to decrease by 10 mg every other day until tapered off. 16. Trazodone 50 mg p.o. at bedtime. All medicines to be modified by hospice on hospice admission at home. CONDITION ON DISCHARGE: Poor. The patient is DNR. DISPOSITION: Patient will be discharged home via private vehicle for hospice care. FOLLOWUP: Follow up with PCP as needed. Approximately 35 minutes were spent arranging and coordinating discharge plans.
[2016-11-27] MEDS ORDERED: Cyclobenzaprine 10 MG TAB ONE (11:50)
[2016-11-27] MEDS: HumaLOG 300 UNITS/3 ML VIAL SC PRN (11:53)
== END 2016-11-27 13:20 | disposition hospice, home (50) | DRG 871 ==
LOC: ERS 20:52 → CCU 23:00 → ONC 11-23 16:32
PROVIDERS: ADMIT Internal Medicine; ATTEND Internal Medicine
PROC: 5A09357 Assistance with Respiratory Ventilation, Less than 24 Consecutive Hours, Continuous Positive Airway Pressure (ICD-10-PCS; principal; 2016-11-21)
PROC: 06HM33Z Insertion of Infusion Device into Right Femoral Vein, Percutaneous Approach (ICD-10-PCS; 2016-11-21)
DX: A41.9 Sepsis, unspecified organism (principal); I21.4 Non-ST elevation (NSTEMI) myocardial infarction; J96.01 Acute respiratory failure with hypoxia; J69.0 Pneumonitis due to inhalation of food and vomit; J96.02 Acute respiratory failure with hypercapnia; N17.9 Acute kidney failure, unspecified; E83.51 Hypocalcemia; I24.8 Other forms of acute ischemic heart disease; C34.90 Malignant neoplasm of unspecified part of unspecified bronchus or lung; N39.0 Urinary tract infection, site not specified; I73.9 Peripheral vascular disease, unspecified; M06.9 Rheumatoid arthritis, unspecified; Z91.09 Other allergy status, other than to drugs and biological substances; Z91.040 Latex allergy status; G40.909 Epilepsy, unspecified, not intractable, without status epilepticus; Z51.5 Encounter for palliative care; E87.5 Hyperkalemia; D64.9 Anemia, unspecified; Z66 Do not resuscitate; I69.991 Dysphagia following unspecified cerebrovascular disease; R13.12 Dysphagia, oropharyngeal phase; R65.20 Severe sepsis without septic shock; Z87.891 Personal history of nicotine dependence; Z89.612 Acquired absence of left leg above knee; Z89.611 Acquired absence of right leg above knee
CPT/HCPCS: 36415; 36416; 36556; 51703; 70450; 71010; 74000; 80048; 80053; 80202; 81003; 81015; 82140; 82550; 82553; 82805; 83605; 83690; 83735; 83880; 84484; 85025; 85610; 85730; 86850; 86900; 86901; 87040; 87086; 93005; 94640; 94660; 96360; 96365; 96366; 96367; 96368; 96372; 99292; A4216; J0692; J1644; J1650; J1940; J1953; J2270; J2543; J2930; J3370; J3475; J3480; J7050; J7500; J7620; S0028